=== PATIENT | female | born 1960 | race Caucasian/White ===

== ENCOUNTER 2022-03-27 09:03 | Outpatient (CLI) | payer OTHER, SELFPAY ==
[2022-03-27 15:13] LABS: Chloride* 102 mmol/L (96-114)
[2022-03-27 15:14] LABS: Potassium* 4.7 mmol/L (3.6-5.1); Sodium* 139 mmol/L (135-149)
[2022-03-27 15:15] LABS: Cholesterol* 213 mg/dL (90-199)
[2022-03-27 15:16] LABS: Alkaline Phosphatase* 72 U/L (40-150); Aspartate Amino Transferase* 34 U/L (12-35); Bilirubin Total* 0.7 mg/dL (0.1-1.5); Blood Urea Nitrogen* 16 mg/dL (7-30); Carbon Dioxide* 30 mmol/L (20-32); Creatinine* 0.8 mg/dL (0.5-1.5); Estimated Glomerular Filt Rate 84 ml/min; Glucose* 94 mg/dL (60-115); Total Protein* 7.8 g/dL (6.0-8.3)
[2022-03-27 15:17] LABS: Alanine Aminotransferase* 32 U/L (4-35); Calcium* 9.8 mg/dL (8.4-10.6); HDL Cholesterol* 86 mg/dL (>=50); Iron* 96 ug/dL (37-170); LDL Cholesterol Calculated 108 mg/dL (<100); Triglycerides* 97 mg/dL (40-149)
[2022-03-27 15:36] LABS: Vitamin D 25 Hydroxy* 59 ng/mL (30-80)
[2022-03-27 16:06] LABS: Vitamin B12* 549 pg/mL (243-894)
== END 2022-03-27 09:04 | disposition home or self-care (01) ==
PROVIDERS: PCP Physician Assistant Medical; Visit Provider Physician Assistant Medical
DX: Z00.00 Encounter for general adult medical examination without abnormal findings (principal); E78.00 Pure hypercholesterolemia, unspecified; M81.0 Age-related osteoporosis without current pathological fracture; Z13.6 Encounter for screening for cardiovascular disorders; Z13.29 Encounter for screening for other suspected endocrine disorder
CPT/HCPCS: 80053; 80061; 82306; 82607; 83540; 84443

== ENCOUNTER 2022-05-15 12:51 | Outpatient (CLI) | payer OTHER, SELFPAY ==
--- NOTE | 2022-05-15 13:00 | CRLHL7_ITS ---
For Patients: As a result of the Century Cures Act, medical imaging exams and procedure reports are released immediately into your electronic medical record. You may view this report before your referring provider. If you have questions, please contact your health care provider. DXA BONE MINERAL DENSITY STUDY, 05/15/2022 Reason for exam: Osteoporosis. Current height (inches): 63.0 Weight (lbs.): 134.0 Menopause age: 50 Ethnicity: White 1. Have you had a previous hip or vertebral fracture? No. 2. Have you had any fractures during your adult life which did not result from significant trauma (e.g., auto accident)? No. 3. Did either of your parents have a hip fracture? No. 4. Do you smoke? No. 5. Have you ever taken Glucocorticoids? No. 6. Do you have rheumatoid arthritis? No. 7. Do you have secondary osteoporosis? No. 8. Do you drink 3 or more alcoholic drinks per day? No. 9. Are you being treated for osteoporosis? No. 10. Have you ever taken any of the following medications: Actonel, Evista, Fosamax, Miacalcin, Reclast, Boniva, Forteo, HRT (i.e., estrogen/hormone therapy), Protelos, Prolia, Vitamin D, Calcium, other ??? please specify. ANSWER: Yes; vitamin D, HEART RATE, calcium. 11. Do you have any of the following medical conditions: Anorexia or bulimia, asthma or emphysema, end stage renal disease, hyperparathyroidism, any seizure disorders, cancer, inflammatory bowel diseases, hysterectomy, other ??? please specify. ANSWER: No. 12. What was your maximum height (inches)? 63. 13. Do you perform weightbearing exercise regularly? Yes. 14. Do you regularly consume dairy products? Yes. 15. Do you drink caffeinated beverages? Yes. 16. At what age did your period start? 14. 17. Are you premenopausal? No. 18. How many full-term pregnancies have you had? 2. 19. Have you ever missed your period for more than 6 months in a row (not including or menopause)? No. TECHNIQUE: Bone mineral density study was performed using the [employer]. FINDINGS: The results of the study expressed as bone mineral density (BMD) are as follows: Lumbar Spine L1 to L4: BMD: 0.764 g/cm2. T-score: -2.6. Z-score: -1.1. Neck Left: BMD: 0.619 g/cm2. T-score: -2.1. Z-score: -0.7. Right: BMD: 0.648 g/cm2. T-score: -1.8. Z-score: -0.5. Total Left: BMD: 0.851 g/cm2. T-score: -0.7. Z-score: 0.3. Right: BMD: 0.887 g/cm2. T-score: -0.5. Z-score: 0.6. IMPRESSION: Osteoporosis. COMPARISON: Compared with scan of 03/28/2021, the bone mineral density has increased by 0.9% at the spine and increased by 1.6% at the hip. Compared with scan of 04/12/2019, the bone mineral density has decreased by 13.7% at the spine and decreased by 2.6% at the hip. *Comparison exams done prior to 09/2019 were performed on different unit, [facility]. GOYO FLETCHER M.D. Diagnostic Radiologist [email or web address] Transcribed: 12:[address]/Dictated by: Goyo Fletcher MD @ 05/16/2022 10:42:00 AM (Electronically Signed)
== END 2022-05-15 12:52 | disposition home or self-care (01) ==
LOC: RAD 12:52
PROVIDERS: PCP Physician Assistant Medical; Visit Provider Physician Assistant Medical
DX: M81.0 Age-related osteoporosis without current pathological fracture (principal)
CPT/HCPCS: 77080

== ENCOUNTER 2022-06-04 10:05 | Outpatient (CLI) | payer OTHER, SELFPAY ==
[2022-06-07 12:11] LABS: Albumin 4.45 g/dL (3.75-5.01); Alpha 1 Globulin 0.28 g/dL (0.19-0.46); Alpha 2 Globulin 0.74 g/dL (0.48-1.05); Total Protein, Serum 7.2 g/dL (6.3-8.2)
== END 2022-06-04 10:06 | disposition home or self-care (01) ==
LOC: LKVLAB 10:06
PROVIDERS: PCP Physician Assistant Medical; Visit Provider Physician Assistant Medical
DX: M81.0 Age-related osteoporosis without current pathological fracture (principal)
CPT/HCPCS: 36415; 82310; 83970; 84165

== ENCOUNTER 2022-06-12 10:10 | Outpatient (CLI) | payer OTHER, SELFPAY | END 2022-06-12 10:11 | disposition home or self-care (01) | LOC: LKVREF 10:11 | PROVIDERS: PCP Physician Assistant Medical; Visit Provider Physician Assistant Medical | DX: M81.0 Age-related osteoporosis without current pathological fracture (principal) | CPT/HCPCS: 82340 ==

== ENCOUNTER 2022-07-25 10:53 | Outpatient (CLI) | payer OTHER, SELFPAY ==
--- NOTE | 2022-07-25 11:15 | CRLHL7_ITS ---
For Patients: As a result of the Century Cures Act, medical imaging exams and procedure reports are released immediately into your electronic medical record. You may view this report before your referring provider. If you have questions, please contact your health care provider. INDICATION: 61 year-old female. Chronic cough. TECHNIQUE: Modified barium swallow. Recorded video swallow. FINDINGS: The patient tolerated all preparations of barium well. No aspiration. No penetration. No holdup of barium. No Zenker`s diverticulum. Brief evaluation in the AP projection demonstrates normal esophageal peristalsis. No hiatal hernia. Given the lack of radiographic findings, consider pulmonary consultation as this study is normal and the patient has a persistent chronic dry cough. 1 minute 40 seconds fluoroscopy time utilized. IMPRESSION: Normal recorded video swallow/modified barium swallow. Dictated by Igor Weiner MD @ 07/25/2022 2:21:15 PM (Electronically Signed)
--- NOTE | 2022-07-25 14:09 | SLP.EVAL ---
Lesly Please review, sign and return Thank you Tanika Guerrero [employer]IC[employer] USE MEDICAL COORDINATOR PE[employer]IC[employer] USE MEDICAL COORDINATOR Eval PESTIC[employer] USE MEDICAL COORDINATOR Eval Start: 07/25/22 12:48 Freq: Status: Active Protocol: Document 07/25/22 12:49 HJBright (Rec: 07/25/22 13:13 HJS [id number]) E-signed By Tanika Guerrero CCC, [employer]STIC[employer] USE MEDICAL COORDINATOR PE[employer]IC[employer] USE MEDICAL COORDINATOR System Review History & Reason For Referral Type of Speech Evaluation Modified Barium Swallow Evaluation Rehabilitation Order Evaluation Date of Order 06/26/22 Reason for Referral frequent coughing with and without food/liquid. Treatment Diagnosis rule out dysphagia Hearing Information Hearing Status Within normal Vision Information Vision Status Within normal Patient Orientation Orientation & Mental Status Within normal [employer]IC[employer] USE MEDICAL COORDINATOR Initial Assessment/POC Subjective Information Subjective/Pain Comment Patient independently ambulated to the xray suite. Assessment & Impression Assessment/Impression Patient is a 61 year old female referred for a modified barium swallow study due to a chronic cough that happens both when eating/drinking and not. It sometimes will happen when she is sleeping. She has recently started taking Nexium which she reports seems to help some. She recently had the flu and is coughing a bit more due to that. THIN LIQUID, PUREE, MUFFIN AND COOKIE WITH BARIUM PUREE Patient was able to take all consistencies, manipulate, chew and swallow without penetration, aspiration or pharyngeal residue. IMPRESSIONS AND RECOMMENDATIONS Patient exhibits a safe and functional swallow with no penetration, aspiration or pharyngeal residue. Reviewed the images with patient. The radiologist completed an AP view of the esophagus with no evidence of a hiatal hernia. Patient may want to consider completing an esophagram to fully assess esophageal function. Please read the radiologist's report for further recommendations. Therapist Signature & License # I Certify That Therapy Services Provided Therapist Signature & License Number Tanika Guerrero CCC-PESTICIDE USE MEDICAL COORDINATOR, # [id number] Physician Signature Signature of Physician Indicates Medically Needed Services Physician Signature & Date Required Please Sign/Date Here Speech/Language Pathology Billing Units Billing Units Eval Swallow Motion Fluoro 1
== END 2022-07-25 10:54 | disposition home or self-care (01) ==
LOC: RAD 10:54
PROVIDERS: PCP Physician Assistant Medical; Visit Provider Physician Assistant Medical
DX: R05.9 Cough, unspecified (principal)
CPT/HCPCS: 74230; 92611

== ENCOUNTER 2022-08-12 07:53 | Outpatient (CLI) | payer OTHER, SELFPAY ==
--- NOTE | 2022-08-12 09:15 | W.ANESCHARGE ---
Anesthesia Charges Start Date/Time Anesthesia Start Date: 08/12/22 Anesthesia Start Time: 08:48 Stop Date/Time Anesthesia Stop Date: 08/12/22 Anesthesia Stop Time: 09:08
--- NOTE | 2022-08-12 09:54 | W.ANESCHARGE ---
Anesthesia Charges Start Date/Time Anesthesia Start Date: 08/12/22 Anesthesia Start Time: 08:48 Stop Date/Time Anesthesia Stop Date: 08/12/22 Anesthesia Stop Time: 09:08
== END 2022-08-12 07:54 | disposition home or self-care (01) ==
LOC: OP CLINIC 07:53
PROVIDERS: PCP Physician Assistant Medical; Visit Provider Surgery
DX: R05.3 Chronic cough (principal); J31.2 Chronic pharyngitis
CPT/HCPCS: 00731; 43239; 88305; J2704

== ENCOUNTER 2023-03-27 08:19 | Outpatient (CLI) | payer OTHER, SELFPAY | END 2023-03-27 08:20 | disposition home or self-care (01) | LOC: NFLDREF 15:17 | PROVIDERS: PCP Physician Assistant Medical; Referring Provider Physician Assistant Medical; Visit Provider Physician Assistant Medical | DX: E78.00 Pure hypercholesterolemia, unspecified (principal) | CPT/HCPCS: 80053; 80061; 84443 ==

== ENCOUNTER 2024-03-29 07:27 | Outpatient (CLI) | payer OTHER, SELFPAY ==
--- NOTE | 2024-03-29 08:26 | W.ANESCHARGE ---
Anesthesia Charges Start Date/Time Anesthesia Start Date: 03/29/24 Anesthesia Start Time: 08:03 Stop Date/Time Anesthesia Stop Date: 03/29/24 Anesthesia Stop Time: 08:25
--- NOTE | 2024-03-29 09:38 | W.ANESCHARGE ---
Anesthesia Charges Start Date/Time Anesthesia Start Date: 03/29/24 Anesthesia Start Time: 08:03 Stop Date/Time Anesthesia Stop Date: 03/29/24 Anesthesia Stop Time: 08:25
== END 2024-03-29 07:28 | disposition home or self-care (01) ==
LOC: OP CLINIC 07:27
PROVIDERS: PCP Physician Assistant Medical; Visit Provider Internal Medicine
DX: Z12.11 Encounter for screening for malignant neoplasm of colon (principal); D12.3 Benign neoplasm of transverse colon; K64.9 Unspecified hemorrhoids; Z86.0100 Personal history of colon polyps, unspecified
CPT/HCPCS: 00811; 45380; 88305; J2704

== ENCOUNTER 2024-05-14 08:30 | Outpatient (CLI) | payer OTHER, SELFPAY | END 2024-05-14 08:31 | disposition home or self-care (01) | LOC: NFLDREF 05-15 16:42 | PROVIDERS: PCP Physician Assistant Medical; Referring Provider Physician Assistant Medical; Visit Provider Physician Assistant Medical | DX: M81.0 Age-related osteoporosis without current pathological fracture (principal); E78.00 Pure hypercholesterolemia, unspecified | CPT/HCPCS: 80053; 80061; 82306 ==